=== PATIENT | female | born 1960 | race Caucasian/White ===

== ENCOUNTER → 2017-03-03 | Outpatient (CLI) | payer BC ==
--- NOTE | 2017-03-05 07:19 | MM ---
Reason for exam: screening (asymptomatic). Last mammogram was performed 1 year and 2 months ago. History: Patient is postmenopausal. Family history of breast cancer in paternal aunt. Physical Findings: A clinical breast exam by your physician is recommended on an annual basis and results should be correlated with mammographic findings. MG Screening Mammo w CAD Bilateral CC and MLO view(s) were taken. XCCL view(s) were taken of the right breast. Prior study comparison: December 21, 2015, bilateral MG screening mammo w CAD. November 25, 2014, bilateral MG screening mammo w CAD. November 16, 2013, bilateral MG screening mammo w CAD. The breast tissue is heterogeneously dense. This may lower the sensitivity of mammography. There are benign appearing diffuse, scattered, bilateral rounded calcifications. No suspicious abnormality. ASSESSMENT: Benign, BI-RAD 2 RECOMMENDATION: Routine screening mammogram of both breasts in 1 year.
== END | disposition home or self-care (01) ==
LOC: RADMAMWWP 16:33
PROVIDERS: ATTEND Family Medicine
DX: Z12.31 Encounter for screening mammogram for malignant neoplasm of breast (principal)
CPT/HCPCS: 77067

== ENCOUNTER → 2017-09-23 | Outpatient (CLI) | payer BC ==
[2017-09-23 12:29] LABS: Basophils % (A) 1 %; Eosinophils # (A) 0.1 k/uL (0-0.7); Eosinophils % (A) 1 %; HCT 43.1 % (34.0-46.0); HGB 14.1 gm/dL (11.4-16.0); Lymphocytes # (A) 1.4 k/uL (1.0-4.8); Lymphocytes % (A) 24 %; MCH 27.6 pg (25.0-35.0); MCHC 32.8 g/dL (31.0-37.0); MCV 84.3 fL (80.0-100.0); Mean Platelet Volume 7.6; Monocytes # (A) 0.3 k/uL (0-1.0); Monocytes % (A) 6 %; Neutrophils # (A) 3.9 k/uL (1.3-7.7); Neutrophils % (A) 68 %; Platelet Count 293 k/uL (150-450); RBC 5.12 m/uL (3.80-5.40); RDW 12.8 % (11.5-15.5); WBC 5.8 k/uL (3.8-10.6)
[2017-09-23 12:47] LABS: Albumin 4.5 g/dL (3.5-5.0); Potassium 4.7 mmol/L (3.5-5.1); Total Bilirubin 0.5 mg/dL (0.2-1.3); Total Protein 7.3 g/dL (6.3-8.2)
--- NOTE | 2017-09-23 12:57 | XR ---
EXAMINATION TYPE: XR chest 2V DATE OF EXAM: 09/23/2017 COMPARISON: Chest x-ray January 25, 2014. HISTORY: History of COPD. Presurgical study. TECHNIQUE: Frontal and lateral views of the chest are obtained. FINDINGS: There is chronic parenchymal change without suspicious focal air space opacity, pleural ef fusion, or pneumothorax seen. The cardiac silhouette size is within normal limits. Spine is straight ened on lateral view. IMPRESSION: No acute cardiopulmonary process. No significant change from prior.
[2017-09-24 14:49] LABS: T4, Free (Free Thyroxine) 0.91 ng/dL (0.78-2.19)
== END | disposition home or self-care (01) ==
LOC: LABWHC1 10:48
PROVIDERS: ATTEND Family Medicine
DX: Z01.818 Encounter for other preprocedural examination (principal); Z01.812 Encounter for preprocedural laboratory examination
CPT/HCPCS: 36415; 71046; 80053; 84439; 84443; 85025; 93005

== ENCOUNTER → 2018-07-02 | Outpatient (CLI) | payer BC ==
--- NOTE | 2018-07-02 11:57 | BD ---
EXAMINATION TYPE: Axial Bone Density DATE OF EXAM: 07/02/2018 COMPARISON: 03/04/2013 CLINICAL HISTORY: Postmenopausal female. Osteoporosis screening. Height: 65 Weight: 152 FRAX RISK QUESTIONS: Alcohol (3 or more units per day): no Family History (Parent hip fracture): no Glucocorticoids (More than 3mos): no (Ex: prednisone, prednisolone, methylprednisolone, dexamethasone, and hydrocortisone). History of Fracture in Adulthood: no Secondary Osteoporosis: 1. Type 1 Diabetes: no 2. Hyperthyroidism: no 3. Menopause before 45: no 4. Malnutrition: no 5. Chronic liver disease: no Rheumatoid Arthritis: no Current Tobacco Use: no RISK FACTORS HISTORY OF: Surgery to Spine: yes When: 2008 ruptured disc L4/L5 Family History of Osteoporosis: yes, mother Active: yes Diet low in dairy products/other sources of calcium: about one serving a day Postmenopausal woman: yes Take estrogen and/or progesterone medications: no Lost more than 2 inches in height since high school: no Frequent falls: no Poor Health: no Hyperparathyroidism: no Adrenal Insufficiency: no MEDICATIONS: Prednisone or other steroids: no Thyroid Medications: yes Which medication: ASSEMBLY MANAGER Thyroid How Long: over 5 years Osteoporosis Medications: no Additional Medications: Vitamin D Additional History: EXAM MEASUREMENTS: Bone mineral densitometry was performed using the [email or web address] System. Bone mineral density as measured about the Lumbar spine is: ----- L1-L4(G/cm2): 1.197 T Score Values are as follows: ----- L2: -0.4 ----- L3: 0.5 ----- L4: 0.9 ----- L1-L4: 0.1 Bone mineral density has: Increased 2.5% since study of: 03/04/2013 Bone mineral density about the R hip (g/cm2): 0.792 Bone mineral density about the L hip (g/cm2): 0.790 T Score values are as follows: -----R Neck: -1.8 -----L Neck: -1.8 -----R Total: -0.9 -----L Total: -1.0 Bone mineral density has: Decreased -4.1% since study of: 03/04/2013 IMPRESSION: Osteopenia (T Score between -2.5 and -1). There is slightly increased risk of fracture and the patient may be considered for treatment. Re-Screen 2-5 years. NOTE: T-SCORE=SD OF THE YOUNG ADULT MEAN.
--- NOTE | 2018-07-07 10:25 | MM ---
Reason for exam: screening (asymptomatic). Last mammogram was performed 1 year and 4 months ago. History: Patient is postmenopausal. Family history of breast cancer in paternal aunt. Physical Findings: A clinical breast exam by your physician is recommended on an annual basis and results should be correlated with mammographic findings. MG 3D Screening Mammo W/Cad Bilateral CC and MLO view(s) were taken. Prior study comparison: March 03, 2017, bilateral MG screening mammo w CAD. December 21, 2015, bilateral MG screening mammo w CAD. The breast tissue is heterogeneously dense. This may lower the sensitivity of mammography. Finding: There are diffuse/scattered fine calcifications in both breasts. No significant changes in finding since March 03, 2017 and December 21, 2015. ASSESSMENT: Benign, BI-RAD 2 RECOMMENDATION: Routine screening mammogram of both breasts in 1 year.
== END | disposition home or self-care (01) ==
LOC: RADMAMWWP 10:01
PROVIDERS: ATTEND Family Medicine
DX: Z12.31 Encounter for screening mammogram for malignant neoplasm of breast (principal); M85.851 Other specified disorders of bone density and structure, right thigh; M85.852 Other specified disorders of bone density and structure, left thigh; Z78.0 Asymptomatic menopausal state
CPT/HCPCS: 77063; 77067; 77080

== ENCOUNTER → 2018-07-30 | Day surgery (SDC) | payer BC ==
[~2018-07-30] MED LIST: ALPRAZolam 0.5 MG TAB PO STA
[2018-07-30 09:13] VITALS: RESP 18; TEMP 97.7
[2018-07-30 10:34] VITALS: BP 118/63; PULSE 77
--- NOTE | 2018-07-30 14:32 | US ---
EXAMINATION TYPE: US FNA thyroid first lesion DATE OF EXAM: 07/30/2018 COMPARISON: NONE HISTORY: Thyroid nodule. Maximal barrier technique was utilized. After informed consent, skin overlying the lesion was locali zed with ultrasound and the overlying skin prepped and draped. Ultrasound was utilized using sterile technique. Lidocaine was used for local anesthesia. Five passes with a 25-gauge needle were made int o the right thyroid nodule and aspirated specimen was submitted to cytology. Following the procedure hemostasis achieved. No immediate complication. The patient discharged in stable condition. IMPRESSION: STATUS POST ULTRASOUND GUIDED FINE NEEDLE ASPIRATION OF THYROID NODULE, PATHOLOGY IS PEND ING. THIS PROCEDURE WAS PERFORMED BY THE UNDERSIGNED.
== END ==
LOC: RADPROMAIN 08:41
PROVIDERS: ATTEND Surgery
DX: E04.2 Nontoxic multinodular goiter (principal)
CPT/HCPCS: 10005; 88173; 88305

== ENCOUNTER → 2019-07-06 | Outpatient (CLI) | payer BC | END | disposition home or self-care (01) | LOC: LABWHC1 10:47 | PROVIDERS: ATTEND Physical Medicine & Rehabilitation | DX: U07.1 COVID-19 (principal) | CPT/HCPCS: 87635 ==

== ENCOUNTER → 2020-02-02 | Outpatient (CLI) | payer BC ==
--- NOTE | 2020-02-07 09:21 | MM ---
Reason for exam: screening (asymptomatic). Last mammogram was performed 1 year and 7 months ago. History: Patient is postmenopausal. Family history of breast cancer in paternal aunt. Took estrogen for 5 years. Took progesterone for 5 years. Physical Findings: A clinical breast exam by your physician is recommended on an annual basis and results should be correlated with mammographic findings. MG 3D Screening Mammo W/Cad Bilateral CC and MLO view(s) were taken. Prior study comparison: July 02, 2018, bilateral MG 3d screening mammo w/cad. March 03, 2017, bilateral MG screening mammo w CAD. The breast tissue is heterogeneously dense. This may lower the sensitivity of mammography. There is chronic nodularity in the right breast central CC view on 3D images and in the left breast posterior and lateral. Stable regional calcifications lateral posterior right breast. Global asymmetry medial right breast. No significant changes when compared with prior studies. ASSESSMENT: Benign, BI-RAD 2 RECOMMENDATION: Routine screening mammogram of both breasts in 1 year.
== END | disposition home or self-care (01) ==
LOC: RADMAMWWP 13:56
PROVIDERS: ATTEND Family Medicine
DX: Z12.31 Encounter for screening mammogram for malignant neoplasm of breast (principal)
CPT/HCPCS: 77063; 77067

== ENCOUNTER → 2021-02-06 | Outpatient (CLI) | payer BC ==
--- NOTE | 2021-02-07 11:13 | MM ---
Reason for exam: screening (asymptomatic). Last mammogram was performed 1 year ago. History: Patient is postmenopausal. Family history of breast cancer in paternal aunt. Took estrogen for 5 years. Took progesterone for 5 years. Physical Findings: A clinical breast exam by your physician is recommended on an annual basis and results should be correlated with mammographic findings. MG 3D Screening Mammo W/Cad Bilateral CC and MLO view(s) were taken. Prior study comparison: February 02, 2020, bilateral MG 3d screening mammo w/cad. July 02, 2018, bilateral MG 3d screening mammo w/cad. Finding: There are several intermediate concern, suspicious, fine grouped/clustered calcifications in the right breast. New finding since February 02, 2020. ASSESSMENT: Incomplete: need additional imaging evaluation, BI-RAD 0 RECOMMENDATION: Special view mammogram of the right breast. [facility] will attempt to contact patient to return for supplemental views.
== END | disposition home or self-care (01) ==
LOC: RADMAMWWP 15:40
PROVIDERS: ATTEND Student in an Organized Health Care Education/Training Program
DX: Z12.31 Encounter for screening mammogram for malignant neoplasm of breast (principal); Z80.3 Family history of malignant neoplasm of breast; Z78.0 Asymptomatic menopausal state
CPT/HCPCS: 77063; 77067

== ENCOUNTER → 2021-02-14 | Outpatient (CLI) | payer BC ==
--- NOTE | 2021-02-19 09:52 | MM ---
Reason for exam: additional evaluation requested from abnormal screening. Last mammogram was performed less than 1 month ago. History: Patient is postmenopausal. Family history of breast cancer in paternal aunt. Took estrogen for 5 years. Took progesterone for 5 years. Physical Findings: Nurse did not find any significant physical abnormalities on exam. MG 3D Work Up W/Cad RT CC with magnification, MLO with magnification, LM with magnification, and LM view(s) were taken of the right breast. Prior study comparison: February 06, 2021, bilateral MG 3d screening mammo w/cad. February 02, 2020, bilateral MG 3d screening mammo w/cad. The breast tissue is heterogeneously dense. This may lower the sensitivity of mammography. Large group of heterogeneous calcifications 9 o'clock posterior to middle depth right breast. The inferior calcifications are not as pronounced on magnification views. These results were verbally communicated with the patient and result sheet given to the patient on 02/14/21. ASSESSMENT: Incomplete: need additional imaging evaluation, BI-RAD 0 RECOMMENDATION: Ultrasound of the right breast. (8-11 o'clock)
--- NOTE | 2021-02-19 09:54 | USB ---
Reason for exam: additional evaluation requested from abnormal screening. History: Patient is postmenopausal. Family history of breast cancer in paternal aunt. Took estrogen for 5 years. Took progesterone for 5 years. US Breast Workup Limited RT Technologist: Alina Zhao Right limited breast ultrasound including focal area of concern, retroareolar and axilla demonstrates a 0.4 x 0.4 x 0.3cm cystic, anechoic lesion at 8 o'clock, benign. Scanned 8-11 o'clock. These results were verbally communicated with the patient and result sheet given to the patient on 02/14/21. ASSESSMENT: Suspicious, BI-RAD 4 RECOMMENDATION: Stereotactic core biopsy of the right breast. (calcifications) Called Dr. Mills's office with mammographic findings and has scheduled an appointment for the patient for 02/16/21 at 1:[address] So. Biopsy scheduled for 03/15/21 at 8:00. PRELIMINARY REPORT CALLED AND FAXED TO DR. SO ON 02/19/21.
== END | disposition home or self-care (01) ==
LOC: RADMAMWWP 14:56
PROVIDERS: ATTEND Student in an Organized Health Care Education/Training Program
DX: R92.8 Other abnormal and inconclusive findings on diagnostic imaging of breast (principal); Z78.0 Asymptomatic menopausal state; Z80.3 Family history of malignant neoplasm of breast
CPT/HCPCS: 77061; 77065

== ENCOUNTER → 2021-02-16 | Outpatient (CLI) | payer BC ==
[2021-02-16 13:33] VITALS: BP 121/77; PULSE 78; RESP 18; TEMP 97.9
--- NOTE | 2021-02-16 13:55 | P.GSHP ---
History of Present Illness H&P Date: 02/16/21 Chief Complaint: abnormal calcifications right breast Rosemarie is a 60 year old white female seen in consultation for Dr. Mills regarding calcifications of concern in the right breast. Patient does not have any lumps masses or nodules in either breast. She is not complaining of any nipple discharge or skin changes. She is not complaining of any pain in her breast. She has never had any biopsies or surgery on her breast in the past. She has not had any trauma or infection in her breast. Nicotine: stopped 7 years ago used to smoke 1 PPd for 40 years caffiene: daily in AM 2-3 cups chocolate: rare Family History: father: lung cancer at 49 smoker paternal uncles: (8) all had lung cancer paternal aunts: breast cancer; (2) lung cancer brother: prostate cancer, lung cancer maternal grandfather cancer ? type Hormonal History: menarche: 12 , breast fed: no age at first : 16 menopause: hysterectomy at 20 for fibroid tumors, 2012 oophrectomy BCP: 3 years hormones: Progesterone and estrogen cream stopped using cream recently 1 year ago, used it for about 5 years Surgical History: tonsil two back surgeries oophrectomy hysterectomy bladder prolapse mesh placed Medical History: nodule on thyroid boarderline diabetis COPD GERD Social History: smoke: electronic cigarettes alcohol: twice a month drugs: none - Constitutional Constitutional: Denies chills, Denies fever - EENT Eyes: denies blurred vision, denies pain Ears: deny: decreased hearing, tinnitus Ears, nose, mouth and throat: Denies headache, Denies sore throat - Breasts Breasts: bilateral: as per HPI - Cardiovascular Cardiovascular: Denies chest pain, Denies shortness of breath - Respiratory Respiratory: Reports as per HPI - Gastrointestinal Gastrointestinal: Denies abdominal pain, Denies diarrhea, Denies nausea, Denies vomiting - Genitourinary (Female) Genitourinary: Reports as per HPI, Denies dysuria, Denies hematuria - Menstruation Menstruation: Reports as per HPI, Reports post hysterectomy - Musculoskeletal Musculoskeletal: Denies myalgias - Integumentary Integumentary: Denies pruritus, Denies rash - Neurological Neurological: Denies numbness, Denies weakness - Psychiatric Psychiatric: Denies anxiety, Denies depression - Endocrine Endocrine: Reports as per HPI - Hematologic/Lymphatic Comment: none - Allergic/Immunologic Allergic/Immunologic: Reports as per HPI Past Medical History Past Medical History: COPD, GERD/Reflux, Thyroid Disorder Additional Past Medical History / Comment(s): Pt states sometimes her heart feels like it is "racing" which she attributes to her thyroid disease. Pt has Blas's dx. Pt states she has had diarrhea x 2 days. prolapse bladder History of Any Multi-Drug Resistant Organisms: None Reported Past Surgical History: Back Surgery, Hysterectomy Additional Past Surgical History / Comment(s): 2009 Low back surgery. Hysterectomy in 1980 due to prolapse and alot of "cysts" and oophorectomy 2010 due to cysts. Past Anesthesia/Blood Transfusion Reactions: No Reported Reaction Additional Past Anesthesia/Blood Transfusion Reaction / Comment(s): Pt has never recieved blood. Past Psychological History: No Psychological Hx Reported Smoking Status: Former smoker Past Alcohol Use History: None Reported Past Drug Use History: None Reported - Past Family History Father Family Medical History: Cancer Additional Family Medical History / Comment(s): Father of lung CA at age 49yrs. Mother Family Medical History: Dementia Medications and Allergies Home Medications Medication Instructions Recorded Confirmed Type Thyroid,Pork [[employer] Thyroid] 60 mg PO DAILY 06/25/18 02/16/21 History Pantoprazole [Protonix] 40 mg PO DAILY 02/16/21 02/16/21 History Allergies Allergy/AdvReac Type Severity Reaction Status Date / Time No Known Allergies Allergy Verified 02/16/21 13:25 Surgical - Exam Vital Signs Temp Pulse Resp BP 97.9 F 78 18 121/77 02/16/21 13:26 02/16/21 13:26 02/16/21 13:26 02/16/21 13:26 BMI 27.5 - General no distress - Eyes normal ocular movement - ENT normal nares - Neck trachea midline - Respiratory normal respiratory effort, clear to auscultation - Cardiovascular Rhythm: regular Heart Sounds: normal: S1, S2 - Abdomen Abdomen: soft - Integumentary normal turgor - Neurologic no disoriented, no combative - Musculoskeletal normal gait - Psychiatric oriented to time, oriented to person, oriented to place, speech is normal, memory intact Breast Exam: BRA: 38D Inspection: Bilateral grade 3 ptosis Palpation: Right breast: Multi-positional exam fibrocystic changes no dominant masses or nodules of concern Right axilla: No adenopathy of concern Left breast: Multi-positional exam fibrocystic changes no dominant masses or nodules of concern Left axilla: No adenopathy of concern Results Mammogram reviewed with Dr. Al/microcalcifications of concern appeared to be in the upper outer quadrant of the right breast Assessment and Plan Assessment: Impression: Fibrocystic breast changes Microcalcifications right breast mammogram of concern Borderline diabetic COPD Plan: Stereotactic core biopsy right breast Risks and benefits of the procedure discussed with the patient. Risks include but are not limited to bleeding, infection, reaction to the anesthetic. If the lesion were to be discordant possibility of resection in the operating room may be recommended. Alternatives such as watchful waiting or resection of the operating room discussed but not recommended. Patient understands and this is scheduled for the near future. CC: Dr. Mills
== END ==
LOC: WWCWWP 12:59
PROVIDERS: ATTEND Surgery
DX: N60.11 Diffuse cystic mastopathy of right breast (principal); R73.03 Prediabetes; J44.9 Chronic obstructive pulmonary disease, unspecified; K21.9 Gastro-esophageal reflux disease without esophagitis; Z87.891 Personal history of nicotine dependence; Z79.899 Other long term (current) drug therapy

== ENCOUNTER → 2021-03-15 | Day surgery (SDC) | payer BC ==
[2021-03-15 07:33] VITALS: RESP 16
--- NOTE | 2021-03-15 08:44 | P.PCN ---
Date of Procedure: 03/15/21 Preoperative Diagnosis: heterogeneous microcalcifications 9 o'clock position right breast Postoperative Diagnosis: Same Procedure(s) Performed: Stereotactic core biopsy right breast Anesthesia: local Surgeon: Ronna So Pathology: other (Breast tissue/radiographic specimen reveals multiple microcalcifications) Condition: stable Disposition: same day Indications for Procedure: Heterogeneous microcalcifications 9 o'clock position right breast Operative Findings: radiograph of specimen reveals microcalcifications in specimen Description of Procedure: Rosemarie is a 60 year old white female who on mammogram was noted to have heterogeneous calcifications in the 9:00 posterior to middle depth of the right breast. She was recommended to undergo stereotactic core biopsy. Risk and benefits of the procedure were discussed with the patient. Alternative such as watchful waiting or resection of the operating room were considered but not recommended. The patient wished to proceed with a stereotactic core biopsy. The patient was taken to the stereotactic core biopsy room. A customer experience professional film was obtained. The calcifications of concern were identified. These were amorphous and somewhat difficult to visualize. Consultation with radiology Dr. Arana was obtained. The targeting was done using the customer experience professional film to help target. The area of concern was targeted. The breast was prepped using Betadine. 20 mL of 1% lidocaine were used to anesthetize the area of concern. A 9-gauge vacuum- assisted core rotating biopsy needle was driven to the correct coordinates. A prefire film was obtained. The needle appeared to be in the correct location. The needle was fired. A post-fire film was obtained. The needle appeared to be in the correct location. 12 core specimens were obtained. Radiograph of the specimen revealed the calcifications of concern had been sampled. A secure maribell top hat clip was placed. This appeared to be in the correct location. The patient will follow with Dr. Fitzgerald next week. The specimen was sent for pa thology.
[2021-03-15 08:51] VITALS: BP 143/71; PULSE 51; TEMP 98.5
--- NOTE | 2021-03-15 09:58 | MM ---
Rosemarie is a 60 year old white female who on mammogram was noted to have heterogeneous calcifications in the 9:00 posterior to middle depth of the right breast. She was recommended to undergo stereotactic core biopsy. Risk and benefits of the procedure were discussed with the patient. Alternative such as watchful waiting or resection of the operating room were considered but not recommended. The patient wished to proceed with a stereotactic core biopsy. The patient was taken to the stereotactic core biopsy room. A personnel arbitrator film was obtained. The calcifications of concern were identified. These were amorphous and somewhat difficult to visualize. Consultation with radiology Dr. Arana was obtained. The targeting was done using the personnel arbitrator film to help target. The area of concern was targeted. The breast was prepped using Betadine. 20 mL of 1% lidocaine were used to anesthetize the area of concern. A 9-gauge vacuum- assisted core rotating biopsy needle was driven to the correct coordinates. A prefire film was obtained. The needle appeared to be in the correct location. The needle was fired. A post-fire film was obtained. The needle appeared to be in the correct location. 12 core specimens were obtained. Radiograph of the specimen revealed the calcifications of concern had been sampled. A secure maribell top hat clip was placed. This appeared to be in the correct location. The patient will follow with Dr. Fitzgerald next week. The specimen was sent for pathology. [facility]
== END ==
LOC: RADMAMWWP 07:09
PROVIDERS: ATTEND Surgery
DX: R92.8 Other abnormal and inconclusive findings on diagnostic imaging of breast (principal)
CPT/HCPCS: 19081; 88305; A4648; J2001

== ENCOUNTER → 2021-03-23 | Outpatient (CLI) | payer BC ==
[2021-03-23 13:30] VITALS: BP 121/76; PULSE 89; RESP 16; TEMP 97.7
--- NOTE | 2021-03-23 13:37 | P.PN ---
Subjective Progress Note Date: 03/23/21 Principal diagnosis: Fibrocystic changes right breast on core biopsy Sangeetha is a 60-year-old white female status post stereotactic core biopsy right breast on 2321. Pathology is benign breast tissue with sclerotic fibrosis fibrocystic change of microcalcifications. She tolerated the procedure without difficulty. Objective - Vital Signs Vital signs: Vital Signs Temp 97.7 F 03/23/21 13:25 Pulse 89 03/23/21 13:25 Resp 16 03/23/21 13:25 BP 121/76 03/23/21 13:25 Pulse Ox Intake & Output 03/22/21 03/23/21 03/23/21 18:59 06:59 18:59 Weight 74.843 kg - Constitutional General appearance: Present: cooperative - EENT Eyes: Present: EOMI ENT: Present: hearing grossly normal - Neck Neck: Present: normal ROM - Respiratory Respiratory: bilateral: CTA - Cardiovascular Heart sounds: normal: S1, S2 - Integumentary Integumentary Comment(s): biopsy site right breast clean and dry/mild ecchymosis, no infection or hematoma of concern - Musculoskeletal Musculoskeletal: Present: gait normal - Psychiatric Psychiatric: Present: A&O x's 3, appropriate affect, intact judgment & insight Assessment and Plan Assessment: impression: Fibrocystic breast changes on stereotactic core biopsy Plan: Right breast mammogram 6 months with physician exam at that time CC: Dr. Mills
== END ==
LOC: WWCWWP 13:08
PROVIDERS: ATTEND Surgery
DX: N60.11 Diffuse cystic mastopathy of right breast (principal); R92.0 Mammographic microcalcification found on diagnostic imaging of breast; Z87.891 Personal history of nicotine dependence

== ENCOUNTER → 2021-09-20 | Outpatient (CLI) | payer OTHER ==
--- NOTE | 2021-09-20 10:57 | MM ---
Reason for Exam: Follow-up at short interval from prior study. Last screening mammogram was performed 8 month(s) ago. Patient History: Menarche at age 12. First Full-Term at age 15. Left ovary removed at age 50. Right ovary removed at age 50. Hysterectomy at age 20. Postmenopausal. Patient used Estrogen for 5 years. Patient used Progesterone for 5 years. 03/15/2021, Benign Core Biopsy on the right side. Paternal aunt had breast cancer. Risk Values: Krysten 5 year model risk: 1.3%. NCI Lifetime model risk: 5.9%. Prior Study Comparison: 02/02/2020 Bilateral Screening Mammogram, [facility]. 02/06/2021 Bilateral Screening Mammogram, [facility]. 02/14/2021 Right Diagnostic Mammogram, [facility]. Tissue Density: Right: The breast tissue is heterogeneously dense. This may lower the sensitivity of mammography. Findings: Analyzed By CAD. Microclip 9:00 right breast from recent biopsy 6 months ago. Additional areas of regional and faint grouped microcalcifications remain unchanged for 6 months. These can be reassessed at additional short interval follow-up. Areas of asymmetric density are also unchanged. Overall Assessment: Probably benign, BI-RAD 3 Management: Diagnostic Mammogram of both breasts in 6 months. 1. Total 1 year follow-up right breast and annual exam left breast. 2. Patient should continue monthly self breast exams. 3. This exam should not preclude additional follow-up of suspicious palpable abnormalities. Results were given to the patient verbally at the time of exam. Electronically signed and approved by: Dolores Arana M.D. Radiologist
== END | disposition home or self-care (01) ==
LOC: RADMAMWWP 10:21
PROVIDERS: ATTEND Surgery
DX: R92.8 Other abnormal and inconclusive findings on diagnostic imaging of breast (principal); Z78.0 Asymptomatic menopausal state; Z80.3 Family history of malignant neoplasm of breast
CPT/HCPCS: 77061; 77065

== ENCOUNTER → 2021-11-01 | Outpatient (CLI) | payer BC ==
[2021-11-01 09:40] VITALS: BP 165/72; PULSE 60; RESP 17; TEMP 97.1
--- NOTE | 2021-11-01 10:05 | P.PN ---
Subjective Progress Note Date: 11/01/21 Principal diagnosis: Fibrocystic breast changes Rosemarie is a 60 year old white female seen in consultation for Dr. Mills regarding calcifications of concern in the right breast. Patient does not have any lumps masses or nodules in either breast. She is not complaining of any nipple discharge or skin changes. She is not complaining of any pain in her breast. She has never had any biopsies or surgery on her breast in the past. She has not had any trauma or infection in her breast. She underwent a right breast stereotactic core biopsy on 2321. Pathology revealed benign breast tissue with sclerotic fibrosis, fibrocystic changes and microcalcifications. The patient is not complaining of any changes in either breast. She had a repeat right breast mammogram on . This was felt to be BIRADS 3. On this mammogram additional areas of regional in finger microcalcifications were present however unchanged for 6 months. It was felt that these could be reassessed at short-term interval when she had a bilateral mammogram in 6 months. Nicotine: stopped 7 years ago used to smoke 1 PPd for 40 years caffiene: daily in AM 2-3 cups chocolate: rare Family History: father: lung cancer at 49 smoker paternal uncles: (8) all had lung cancer paternal aunts: breast cancer; (2) lung cancer brother: prostate cancer, lung cancer maternal grandfather cancer ? type Hormonal History: menarche: 12 , breast fed: no age at first : 16 menopause: hysterectomy at 20 for fibroid tumors, 2012 oophrectomy BCP: 3 years hormones: Progesterone and estrogen cream stopped using cream recently 1 year ago, used it for about 5 years Surgical History: tonsil two back surgeries oophrectomy hysterectomy bladder prolapse mesh placed Medical History: nodule on thyroid boarderline diabetis COPD GERD Social History: smoke: electronic cigarettes alcohol: twice a month drugs: none - Constitutional Constitutional: Denies chills, Denies fever - EENT Eyes: denies blurred vision, denies pain Ears: deny: decreased hearing, tinnitus Ears, nose, mouth and throat: Denies headache, Denies sore throat - Breasts Breasts: bilateral: as per HPI - Cardiovascular Cardiovascular: Denies chest pain, Denies shortness of breath - Respiratory Respiratory: Reports as per HPI - Gastrointestinal Gastrointestinal: Denies abdominal pain, Denies diarrhea, Denies nausea, Denies vomiting - Genitourinary (Female) Genitourinary: Reports as per HPI, Denies dysuria, Denies hematuria - Menstruation Menstruation: Reports as per HPI, Reports post hysterectomy - Musculoskeletal Musculoskeletal: Denies myalgias - Integumentary Integumentary: Denies pruritus, Denies rash - Neurological Neurological: Denies numbness, Denies weakness - Psychiatric Psychiatric: Denies anxiety, Denies depression - Endocrine Endocrine: Reports as per HPI - Hematologic/Lymphatic Comment: none - Allergic/Immunologic Allergic/Immunologic: Reports as per HPI Objective - Vital Signs Vital signs: Vital Signs Temp 97.1 F L 11/01/21 09:38 Pulse 60 11/01/21 09:38 Resp 17 11/01/21 09:38 BP 165/72 11/01/21 09:38 Pulse Ox 98 11/01/21 09:38 FiO2 Intake & Output 10/31/21 11/01/21 11/01/21 18:59 06:59 18:59 Weight 74.843 kg - Exam BMI: 27.5 - Constitutional General appearance: Present: cooperative - EENT Eyes: Present: EOMI - Neck Neck: Present: normal ROM - Respiratory Respiratory: bilateral: CTA - Cardiovascular Heart sounds: normal: S1, S2 - Integumentary Integumentary: Present: normal turgor - Musculoskeletal Musculoskeletal: Present: gait normal - Psychiatric Psychiatric: Present: A&O x's 3, appropriate affect, intact judgment & insight - Additional findings Additional findings: Breast Exam: BRA: 38D Inspection: Bilateral grade 2 ptosis Palpation: Right breast: Multi-positional exam fibrocystic changes no dominant masses or nodules of concern Right axilla: No adenopathy of concern Left breast: Multi-positional exam fibrocystic changes no dominant masses or nodules of concern Left axilla: No adenopathy of concern Under the right breast there is an area of ecchymosis where she has had a recent soft tissue infection layer past there is no evidence of infection at this time Assessment and Plan Assessment: Impression: Patient status post right breast stereotactic core biopsy on 2321. [place] [id number] BIRADS 3 calcifications are present but appear to be stable. Fibrocystic breast changes Plan: Bilateral mammogram in 6 months with a physician exam at that time Patient to follow up sooner if any questions or concerns CC: Dr. Mills
== END ==
LOC: WWCWWP 09:24
PROVIDERS: ATTEND Surgery
DX: N60.11 Diffuse cystic mastopathy of right breast (principal); N60.12 Diffuse cystic mastopathy of left breast; R92.1 Mammographic calcification found on diagnostic imaging of breast; J44.9 Chronic obstructive pulmonary disease, unspecified; F17.290 Nicotine dependence, other tobacco product, uncomplicated

== ENCOUNTER → 2023-04-21 | Outpatient (CLI) | payer OTHER ==
--- NOTE | 2023-04-22 15:14 | MM ---
Reason for Exam: Screening (asymptomatic). Last screening mammogram was performed 12 month(s) ago. Patient History: Menarche at age 12. First Full-Term at age 15. Left ovary removed at age 50. Right ovary removed at age 50. Hysterectomy at age 20. Postmenopausal. Patient used Estrogen for 5 years. Patient used Progesterone for 5 years. 03/15/2021, Benign Core Biopsy on the right side. Paternal aunt had breast cancer. Risk Values: Krysten 5 year model risk: 1.3%. NCI Lifetime model risk: 5.7%. Prior Study Comparison: 02/14/2021 Right Diagnostic Mammogram, [facility]. 09/20/2021 Right MG 3D diag mammo w/cad RT, [facility]. 04/18/2022 Bilateral MG 3D diag mammo w/cad NAI, [facility]. Tissue Density: The breasts are heterogeneously dense, which may obscure small masses. Findings: Analyzed By CAD. Right breast biopsy clip. There is no suspicious group of microcalcifications or new suspicious mass. Benign-appearing calcifications bilaterally. Overall Assessment: Negative, BI-RAD 1 Management: Screening Mammogram of both breasts in [address] [facility] will attempt to contact patient to return for supplemental views and ultrasound if indicated. Patient should continue monthly self-breast exams. A clinical breast exam by your physician is recommended on an annual basis. This exam should not preclude additional follow-up of suspicious palpable abnormalities. Note on Krysten scores and lifetime risk: 1. A Krysten score greater than 3% is considered moderate risk. If this is the case, consider specialist referral to assess eligibility for a risk reducing agent. 2. If overall lifetime risk for the development of breast cancer is 20% or higher, the patient may qualify for future screening with alternating mammogram and breast MRI. Electronically signed and approved by: Garett Garcia DO
== END | disposition home or self-care (01) ==
LOC: RADMAMWWP 10:09
PROVIDERS: ATTEND Surgery
DX: Z12.31 Encounter for screening mammogram for malignant neoplasm of breast (principal); Z80.3 Family history of malignant neoplasm of breast; Z78.0 Asymptomatic menopausal state
CPT/HCPCS: 77063; 77067

== ENCOUNTER → 2023-04-24 | Outpatient (CLI) | payer OTHER ==
--- NOTE | 2023-04-24 12:08 | P.PN ---
Subjective Progress Note Date: 04/24/23 04-24-23 Principal diagnosis: fibrocystic breast changes Rosemarie is a 62 year old white female seen in consultation for Dr. Mills regarding calcifications of concern in the right breast. Patient does not have any lumps masses or nodules in either breast. She is not complaining of any nipple discharge or skin changes. She is not complaining of any pain in her breast. She has never had any biopsies or surgery on her breast in the past. She has not had any trauma or infection in her breast. She underwent a right breast stereotactic core biopsy on 2321. Pathology revealed benign breast tissue with sclerotic fibrosis, fibrocystic changes and microcalcifications. The patient is not complaining of any changes in either breast. She had a repeat right breast mammogram on . This was felt to be BIRADS 3. On this mammogram microcalcifications were present however unchanged for 6 months. It was felt that these could be reassessed at short- term interval when she had a bilateral mammogram in 6 months. Bilateral mammogram on 04-18-[address] Ck VALDOVINOS 2 She is not complaining of any new lumps masses or nodules of concern in either breast. Bilateral mammogram on 04-21-23 BIRAD 1, she is not complaining of any new lumps masses or nodules of concern in either breast. Nicotine: stopped 8 years ago used to smoke 1 PPd for 40 years caffeine: daily in AM 2-3 cups chocolate: rare Family History: father: lung cancer at 49 smoker paternal uncles: (8) all had lung cancer paternal aunts: breast cancer; (2) lung cancer brother: prostate cancer, lung cancer maternal grandfather cancer ? type Hormonal History: menarche: 12 , breast fed: no age at first : 16 menopause: hysterectomy at 20 for fibroid tumors, 2013 oophrectomy BCP: 3 years hormones: Progesterone and estrogen cream stopped using cream recently 2 year ago, used it for about 5 years Surgical History: tonsil two back surgeries oophrectomy hysterectomy bladder prolapse mesh placed Medical History: nodule on thyroid boarderline diabetis COPD GERD mildly dilated aortic root Social History: smoke: electronic cigarettes alcohol: twice a month drugs: none - Constitutional Constitutional: Denies chills, Denies fever - EENT Eyes: denies blurred vision, denies pain Ears: deny: decreased hearing, tinnitus Ears, nose, mouth and throat: Denies headache, Denies sore throat - Breasts Breasts: bilateral: as per HPI - Cardiovascular Cardiovascular: Denies chest pain, Denies shortness of breath - Respiratory Respiratory: Reports as per HPI - Gastrointestinal Gastrointestinal: Denies abdominal pain, Denies diarrhea, Denies nausea, Denies vomiting - Genitourinary (Female) Genitourinary: Reports as per HPI, Denies dysuria, Denies hematuria - Menstruation Menstruation: Reports as per HPI, Reports post hysterectomy - Musculoskeletal Musculoskeletal: Denies myalgias - Integumentary Integumentary: Denies pruritus, Denies rash - Neurological Neurological: Denies numbness, Denies weakness - Psychiatric Psychiatric: Denies anxiety, Denies depression - Endocrine Endocrine: Reports as per HPI - Hematologic/Lymphatic Comment: none - Allergic/Immunologic Allergic/Immunologic: Reports as per HPI Objective - Constitutional General appearance: Present: cooperative - EENT Eyes: Present: EOMI ENT: Present: hearing grossly normal - Neck Neck: Present: normal ROM - Respiratory Respiratory: bilateral: CTA - Cardiovascular Heart sounds: normal: S1, S2 - Integumentary Integumentary: Present: normal turgor - Musculoskeletal Musculoskeletal: Present: gait normal - Psychiatric Psychiatric: Present: A&O x's 3, appropriate affect, intact judgment & insight - Additional findings Additional findings: Breast Exam: BRA: 38D Inspection: Bilateral grade 2 ptosis Palpation: Right breast: Multi-positional exam fibrocystic changes no dominant masses or nodules of concern Right axilla: No adenopathy of concern Left breast: Multi-positional exam fibrocystic changes no dominant masses or nodules of concern Left axilla: No adenopathy of concern Assessment and Plan Assessment: Impression: Patient status post right breast stereotactic core biopsy on 2321 benign bilateral mammogram on 04-21-23 BIRAD 1 Plan: Bilateral mammogram 1 year with a physician exam at that time Patient to follow up sooner if any questions or concerns CC: Dr. Vanegas
[2023-04-24 12:19] VITALS: BP 129/72; PULSE 59; RESP 15; TEMP 97.9
== END ==
LOC: WWCWWP 11:42
PROVIDERS: ATTEND Surgery
DX: N60.11 Diffuse cystic mastopathy of right breast (principal); N60.12 Diffuse cystic mastopathy of left breast

== ENCOUNTER → 2024-04-21 | Outpatient (CLI) | payer OTHER ==
--- NOTE | 2024-04-21 10:04 | MM ---
Reason for Exam: Screening (asymptomatic). Last screening mammogram was performed 12 month(s) ago. Patient History: Menarche at age 12. First Full-Term at age 15. Left ovary removed at age 50. Right ovary removed at age 50. Hysterectomy at age 20. Postmenopausal. Patient used Estrogen for 5 years. Patient used Progesterone for 5 years. 03/15/2021, Benign Core Biopsy on the right side. Paternal aunt had breast cancer. Risk Values: Krysten 5 year model risk: 1.4%. NCI Lifetime model risk: 5.6%. Prior Study Comparison: 09/20/2021 Right MG 3D diag mammo w/cad RT, [facility]. 04/18/2022 Bilateral MG 3D diag mammo w/cad NAI, [facility]. 04/21/2023 Bilateral MG 3D screening mammo w/cad, [facility]. Tissue Density: The breasts are heterogeneously dense, which may obscure small masses. Findings: Analyzed By CAD. There is no suspicious group of microcalcifications or new suspicious mass in either breast. Overall Assessment: Benign, BI-RAD 2 Management: Screening Mammogram of both breasts in 1 year. . Patient should continue monthly self-breast exams. A clinical breast exam by your physician is recommended on an annual basis. This exam should not preclude additional follow-up of suspicious palpable abnormalities. Note on Krysten scores and lifetime risk: 1. A Krysten score greater than 3% is considered moderate risk. If this is the case, consider specialist referral to assess eligibility for a risk reducing agent. 2. If overall lifetime risk for the development of breast cancer is 20% or higher, the patient may qualify for future screening with alternating mammogram and breast MRI. [facility], , 04/21/2024 10:01 AM. Electronically signed and approved by: Balwinder Christine M.D. Radiologis
== END | disposition home or self-care (01) ==
LOC: RADMAMWWP 09:28
PROVIDERS: ATTEND Surgery
DX: Z12.31 Encounter for screening mammogram for malignant neoplasm of breast (principal); R92.333 Mammographic heterogeneous density, bilateral breasts; Z78.0 Asymptomatic menopausal state; Z80.3 Family history of malignant neoplasm of breast
CPT/HCPCS: 77063; 77067